=== PATIENT | female | born 1995 | race American Indian/Alaskan Native ===

== ENCOUNTER 2017-02-18 12:05 | Emergency (ER) | payer MEDICAID, OTHER ==
[2017-02-18 12:05] VITALS: BMI 30.1
[2017-02-18 12:22] VITALS: BP 129/73; PULSE 74; TEMP 97.8; O2SAT 100
--- NOTE | 2017-02-18 12:34 | ED PDOC ---
HPI: SOB/CHF/COPD Time Seen by Provider: 02/18/17 12:26 Chief Complaint (Nursing): Shortness Of Breath Chief Complaint (Provider): cough History Per: Patient History/Exam Limitations: no limitations Onset/Duration Of Symptoms: Days (3) Current Symptoms Are (Timing): Still Present Exacerbating Factor(s): Coughing Additional History Per: Patient Additional Complaint(s): 21 y/o female presents to ED for evaluation of cough and chest tightness present for the past 3 days. Patient reports she has a history of frequent bronchitis and states she has not taken any medications for her symptoms. She offers no other medical complaints. Denies any recent travel or known sick contacts. PCP: Dr. Maxwell Osborne Past Medical History Reviewed: Historical Data, Nursing Documentation, Vital Signs Vital Signs: Last Vital Signs Temp 97.8 F 02/18/17 12:19 Pulse 74 02/18/17 12:19 Resp 20 02/18/17 12:19 BP 129/73 02/18/17 12:19 Pulse Ox 100 02/18/17 12:37 - Medical History PMH: Bronchitis - Surgical History Surgical History: Hernia Repair (x2) - Family History Family History: States: No Known Family Hx - Living Arrangements Living Arrangements: With Family - Social History Current smoker - smoking cessation education provided: Yes Alcohol: Occasional Drugs: Denies - Home Medications Home Medications: Ambulatory Orders Medication Instructions Recorded Ibuprofen [Motrin] 600 mg PO Q6 PRN #20 tab 09/22/16 Nitrofurantoin Macrocrystals 100 mg PO BID #14 cap 09/22/16 [Macrobid] Acyclovir [Zovirax] 400 mg PO TID #21 tab 09/23/16 Albuterol HFA [Ventolin HFA 90 1 puff IH Q6 PRN #1 inhaler 02/18/17 mcg/actuation (8 g)] Azithromycin [Zithromax] 250 mg PO DAILY #6 tab 02/18/17 Benzonatate 200 mg PO TID PRN #20 capsule 02/18/17 - Allergies Allergies/Adverse Reactions: Allergies Allergy/AdvReac Type Severity Reaction Status Date / Time No Known Allergies Allergy Verified 02/18/17 12:19 Wells Criteria for PE - Wells Criteria for Pulmonary Embolism Clinical Signs and Symptoms of DVT: No P.E is #1 Diagnosis, or Equally Likely: No Heart Rate >100: No Immobilization at least 3 days;Surgery previous 4 weeks: No Previous, objectively diagnosed PE or DVT: No Hemoptysis: No Malignancy w/treatment within 6 months, or palliative: No Total Score: 0 Review of Systems ROS Statement: Except As Marked, All Systems Reviewed And Found Negative Cardiovascular: Positive for: Other (chest tightness from couging) Respiratory: Positive for: Cough, Shortness of Breath, Pleuritic Pain. Negative for: SOB with Exertion Gastrointestinal: Negative for: Nausea, Vomiting Neurological: Negative for: Headache, Dizziness Physical Exam - Reviewed Nursing Documentation Reviewed: Yes Vital Signs Reviewed: Yes - Physical Exam Appears: Positive for: Non-toxic, No Acute Distress Head Exam: Positive for: ATRAUMATIC, NORMAL INSPECTION, NORMOCEPHALIC Skin: Positive for: Warm, Dry ENT: Positive for: Normal ENT Inspection. Negative for: Pharyngeal Erythema, Tonsillar Exudate, Tonsillar Swelling Neck: Positive for: Normal, Supple Cardiovascular/Chest: Positive for: Regular Rate, Rhythm. Negative for: Murmur Respiratory: Positive for: Normal Breath Sounds. Negative for: Wheezing, Respiratory Distress Gastrointestinal/Abdominal: Positive for: Soft. Negative for: Tenderness Extremity: Positive for: Normal ROM. Negative for: Pedal Edema Neurologic/Psych: Positive for: Alert, Oriented. Negative for: Motor/Sensory Deficits - Laboratory Results Urine POC: Negative - ECG Interpretation Of ECG: NSR 81 bpm, no acute findings, reviewed by PA and ED attending O2 Sat by Pulse Oximetry: 100 (RA) Pulse Ox Interpretation: Normal - Other Rad CXR X-Ray: Interpreted by Me, Viewed By Me X-Ray Interpretation: no acute finding Nebulizer Treatments/Peak Flow - Duonebs Number of Bronchodilator Doses given?: 1 (duoneb) - Pre/Post Peak Flow Pre Treatment Peak Flow: 150 Post treatment Peak Flow: 300 - Steroid Treatment Steroid: Not Clinically Indicated - Clinical Response Clinical Response: Improved Medical Decision Making Medical Decision Making: Time: 1228 Impression: Cough, URI Plan: -- CXR -- Duoneb 3ml INH CXR negative Patient given rx zithromax, tessalon perles and ventolin inhaler. Advised PMD follow up in 1-2 days. Scribe Attestation: Documented by Capri Thompson acting as a scribe for AGNES Falk Provider Attestation: All medical record entries made by the Markoibe were at my direction and personally dictated by me. I have reviewed the chart and agree that the record accurately reflects my personal performance of the history, physical exam, medical decision making, and the department course for this patient. I have also personally directed, reviewed, and agree with the discharge instructions and disposition. Disposition - Clinical Impression Clinical Impression: Bronchitis - Patient ED Disposition Is Patient to be Admitted: No Counseled Patient/Family Regarding: Studies Performed, Diagnosis, Need For Followup, Rx Given - Disposition Referrals: Maxwell Osborne MD [IM] - Disposition: Routine/Home Disposition Time: 13:27 Condition: STABLE Additional Instructions: Take prescription medications as directed. Follow-up with primary doctor in 1-2 days. Prescriptions: Albuterol HFA [Ventolin HFA 90 mcg/actuation (8 g)] 1 puff IH Q6 PRN #1 inhaler PRN Reason: Cough Azithromycin [Zithromax] 250 mg PO DAILY #6 tab Benzonatate 200 mg PO TID PRN #20 capsule PRN Reason: Cough Instructions: Acute Bronchitis (ED) Forms: [facility] (Indonesian), [facility] ED School/Work Excuse
[2017-02-18] MEDS: Albuterol-Ipratrop 3 mg / 0.5 (3 ml) UD INH STA (12:41)
[2017-02-18 13:37] VITALS: RESP 16
--- NOTE | 2017-02-18 14:51 | RAD ---
HISTORY: cough COMPARISON: No prior. TECHNIQUE: Chest PA and lateral FINDINGS: LUNGS: No active pulmonary disease. PLEURA: No significant pleural effusion identified. No pneumothorax apparent. CARDIOVASCULAR: Normal. OSSEOUS STRUCTURES: No significant abnormalities. VISUALIZED UPPER ABDOMEN: Normal. OTHER FINDINGS: None. IMPRESSION: No active disease.
== END 2017-02-18 13:39 | disposition home or self-care (01) ==
LOC: H.ER 12:05
DX: J20.9 Acute bronchitis, unspecified (principal)

== ENCOUNTER 2017-04-20 09:12 | Emergency (ER) | payer MEDICAID ==
--- NOTE | 2017-04-20 09:32 | ED PDOC ---
HPI: Female Pain Time Seen by Provider: 04/20/17 09:20 History Per: Patient Current Symptoms Are (Timing): Still Present Severity: Moderate Quality Of Discomfort: Burning Additional Complaint(s): Swelling to vagina after using new body wash. No when urinating. No discharge Past Medical History - Medical History PMH: Bronchitis - Surgical History Surgical History: Hernia Repair (x2) - Family History Family History: States: Unknown Family Hx - Immunization History Hx Tetanus Toxoid Vaccination: No Hx Influenza Vaccination: No Hx Pneumococcal Vaccination: No - Home Medications Home Medications: Ambulatory Orders Medication Instructions Recorded Ibuprofen [Motrin] 600 mg PO Q6 PRN #20 tab 09/22/16 Nitrofurantoin Macrocrystals 100 mg PO BID #14 cap 09/22/16 [Macrobid] Acyclovir [Zovirax] 400 mg PO TID #21 tab 09/23/16 Albuterol HFA [Ventolin HFA 90 1 puff IH Q6 PRN #1 inhaler 02/18/17 mcg/actuation (8 g)] Azithromycin [Zithromax] 250 mg PO DAILY #6 tab 02/18/17 Benzonatate 200 mg PO TID PRN #20 capsule 02/18/17 Hydrocortisone 1% Cream [Cortizone 1 gm EXT BID #1 tube 04/20/17 1% Cream] Nitrofurantoin Macrocrystals 100 mg PO BID #14 cap 04/20/17 [Macrobid] - Allergies Allergies/Adverse Reactions: Allergies Allergy/AdvReac Type Severity Reaction Status Date / Time No Known Allergies Allergy Verified 04/20/17 09:33 Review of Systems Constitutional: Negative for: Fever Genitourinary Female: Positive for: Other (Vaginal swelling) Physical Exam - Physical Exam Appears: Positive for: Non-toxic, No Acute Distress Gastrointestinal/Abdominal: Positive for: Bowel Sounds, Soft. Negative for: Tenderness Pelvic Exam: Positive for: Other (Minimal swelling to ext labis. No lesions. No discharge) Disposition - Clinical Impression Clinical Impression: Contact dermatitis - Patient ED Disposition Is Patient to be Admitted: No Counseled Patient/Family Regarding: Diagnosis, Need For Followup, Rx Given - Disposition Referrals: [facility] [Outside] Disposition: Routine/Home Disposition Time: 09:47 Condition: FAIR Prescriptions: Hydrocortisone 1% Cream [Cortizone 1% Cream] 1 gm EXT BID #1 tube Nitrofurantoin Macrocrystals [Macrobid] 100 mg PO BID #14 cap Instructions: Contact Dermatitis (ED), Urinary Tract Infection in Women (ED)
[2017-04-20 09:33] VITALS: BP 125/84; PULSE 81; RESP 16; TEMP 97.9; O2SAT 100
== END 2017-04-20 10:19 | disposition home or self-care (01) ==
LOC: H.ER 09:12
DX: L23.9 Allergic contact dermatitis, unspecified cause (principal); N39.0 Urinary tract infection, site not specified

== ENCOUNTER 2017-08-05 13:07 | Emergency (ER) | payer MEDICAID, OTHER ==
[2017-08-05 13:15] VITALS: BP 122/82; PULSE 103; RESP 16; TEMP 99.1; O2SAT 99
--- NOTE | 2017-08-05 14:05 | ED PDOC ---
HPI: CCC, URI, Sore Throat Time Seen by Provider: 08/05/17 13:49 Chief Complaint (Nursing): ENT Problem Chief Complaint (Provider): b/l ear pain History Per: Patient History/Exam Limitations: no limitations Onset/Duration Of Symptoms: Days (x1) Current Symptoms Are (Timing): Still Present Location Of Pain: Ear(s), Throat Associated Symptoms: Sore Throat Ear Symptoms: Bilateral: Ear Pain Additional Complaint(s): Norma Holbrook is a 22 year old female, with no significant past medical history, who presents to the emergency department complaining of sore throat, and bilateral ear pain onset since this morning. Patient denies any recent swimming. She denies any fever, chills or other medical complaints. PMD: Bola Osborne Past Medical History Reviewed: Historical Data, Nursing Documentation, Vital Signs Vital Signs: Last Vital Signs Temp 99.1 F 08/05/17 13:13 Pulse 103 H 08/05/17 13:13 Resp 16 08/05/17 13:13 BP 122/82 08/05/17 13:13 Pulse Ox 99 08/05/17 14:10 - Medical History PMH: Bronchitis Denies: Chronic Kidney Disease - Surgical History Surgical History: Hernia Repair (x2) - Family History Family History: States: Unknown Family Hx - Immunization History Hx Tetanus Toxoid Vaccination: No Hx Influenza Vaccination: No Hx Pneumococcal Vaccination: No - Home Medications Home Medications: Ambulatory Orders Medication Instructions Recorded Ibuprofen [Motrin] 600 mg PO Q6 PRN #20 tab 09/22/16 Nitrofurantoin Macrocrystals 100 mg PO BID #14 cap 09/22/16 [Macrobid] Acyclovir [Zovirax] 400 mg PO TID #21 tab 09/23/16 Albuterol HFA [Ventolin HFA 90 1 puff IH Q6 PRN #1 inhaler 02/18/17 mcg/actuation (8 g)] Azithromycin [Zithromax] 250 mg PO DAILY #6 tab 02/18/17 Benzonatate 200 mg PO TID PRN #20 capsule 02/18/17 Hydrocortisone 1% Cream [Cortizone 1 gm EXT BID #1 tube 04/20/17 1% Cream] Nitrofurantoin Macrocrystals 100 mg PO BID #14 cap 04/20/17 [Macrobid] Ciprofloxacin/Dexamethasone 4 drop AD QID #1 bottle 08/05/17 [Ciprodex Otic] - Allergies Allergies/Adverse Reactions: Allergies Allergy/AdvReac Type Severity Reaction Status Date / Time No Known Allergies Allergy Verified 04/20/17 09:33 Review of Systems ROS Statement: Except As Marked, All Systems Reviewed And Found Negative ENT: Positive for: Ear Pain (b/l), Throat Pain Physical Exam - Reviewed Nursing Documentation Reviewed: Yes Vital Signs Reviewed: Yes - Physical Exam Appears: Positive for: Well, Non-toxic, No Acute Distress Head Exam: Positive for: ATRAUMATIC, NORMAL INSPECTION, NORMOCEPHALIC Skin: Positive for: Normal Color, Warm, Dry Eye Exam: Positive for: Normal appearance, EOMI, PERRL ENT: Positive for: TM Is/Are (left TM intact, landmarks clear. Right TM intact, landmarks clear with some effusion.), Pharyngeal Erythema (left side more so than right. Uvula moderately edemic and centerline.) Neck: Positive for: Painless ROM Lymphatic: Positive for: Other (cervical nodes mildly inflamed.) Neurologic/Psych: Positive for: Alert, Oriented - ECG O2 Sat by Pulse Oximetry: 99 (RA) Pulse Ox Interpretation: Normal Medical Decision Making Medical Decision Making: Initial Impression: External otitis Initial Plan: --Reevaluation ~ Scribe Attestation: Documented by Ralph Galvan, acting as a scribe for Jarrod Smith PA-C. Provider Scribe Attestation: All medical record entries made by the Scribe were at my direction and personally dictated by me. I have reviewed the chart and agree that the record accurately reflects my personal performance of the history, physical exam, medical decision making, and the department course for this patient. I have also personally directed, reviewed, and agree with the discharge instructions and disposition. Disposition - Clinical Impression Clinical Impression: External otitis of left ear, Left ear pain - Disposition Disposition: Routine/Home Disposition Time: 14:56 Condition: GOOD Additional Instructions: keep ear dry take medication provided as directed Prescriptions: Ciprofloxacin/Dexamethasone [Ciprodex Otic] 4 drop AD QID #1 bottle Instructions: Outer Ear Infection (DC) Forms: [facility] (Maltese), [facility] ED School/Work Excuse
== END 2017-08-05 14:35 | disposition home or self-care (01) ==
LOC: H.ER 13:07
DX: H60.92 Unspecified otitis externa, left ear (principal)

== ENCOUNTER 2017-08-12 09:23 | Emergency (ER) | payer OTHER ==
[2017-08-12 10:01] VITALS: BP 136/89; PULSE 90; RESP 18; TEMP 98; O2SAT 98
--- NOTE | 2017-08-12 11:13 | ED PDOC ---
HPI: General Adult Time Seen by Provider: 08/12/17 10:32 Chief Complaint (Nursing): ENT Problem History Per: Patient Additional Complaint(s): Pt. states last week she was seen in this ED for a L earache. She was prescribed Ciprodex but was substituded cortisporin solution. Reports 2 days after ED visit she developed R earache for which she used the ear drops. Ear pain has been improving but on Friday she developed a sore throat. Sore throat has been radiating up to both ears. Denies fever, cough, SOB, rash, abdominal pain, sick contacts, recent travel. Of note, pt. has not used any meds other than ear drops to help relieve pain. Past Medical History Reviewed: Historical Data, Nursing Documentation, Vital Signs Vital Signs: Last Vital Signs Temp 98.0 F 08/12/17 09:57 Pulse 90 08/12/17 09:57 Resp 18 08/12/17 09:57 BP 136/89 08/12/17 09:57 Pulse Ox 98 08/12/17 11:18 - Medical History PMH: Bronchitis Denies: Chronic Kidney Disease - Surgical History Surgical History: No Surg Hx, Hernia Repair (x2) - Family History Family History: States: No Known Family Hx - Immunization History Hx Tetanus Toxoid Vaccination: No Hx Influenza Vaccination: No Hx Pneumococcal Vaccination: No - Home Medications Home Medications: Ambulatory Orders Medication Instructions Recorded Ibuprofen [Motrin] 600 mg PO Q6 PRN #20 tab 09/22/16 Nitrofurantoin Macrocrystals 100 mg PO BID #14 cap 09/22/16 [Macrobid] Acyclovir [Zovirax] 400 mg PO TID #21 tab 09/23/16 Albuterol HFA [Ventolin HFA 90 1 puff IH Q6 PRN #1 inhaler 02/18/17 mcg/actuation (8 g)] Azithromycin [Zithromax] 250 mg PO DAILY #6 tab 02/18/17 Benzonatate 200 mg PO TID PRN #20 capsule 02/18/17 Hydrocortisone 1% Cream [Cortizone 1 gm EXT BID #1 tube 04/20/17 1% Cream] Nitrofurantoin Macrocrystals 100 mg PO BID #14 cap 04/20/17 [Macrobid] Ciprofloxacin/Dexamethasone 4 drop AD QID #1 bottle 08/05/17 [Ciprodex Otic] Amoxicillin [Amoxil 500 mg Cap] 500 mg PO TID #30 cap 08/12/17 Ibuprofen [Motrin] 600 mg PO Q6 PRN #30 tab 08/12/17 - Allergies Allergies/Adverse Reactions: Allergies Allergy/AdvReac Type Severity Reaction Status Date / Time No Known Allergies Allergy Verified 04/20/17 09:33 Review of Systems ROS Statement: Except As Marked, All Systems Reviewed And Found Negative ENT: Positive for: Ear Pain, Throat Pain Physical Exam - Physical Exam Appears: Positive for: Well Skin: Positive for: Normal Color, Warm. Negative for: Rash Eye Exam: Positive for: Normal appearance. Negative for: Conjunctival injection ENT: Positive for: TM Is/Are (non-erythematous, non-bulging b/l), Hearing Is ( grossly intact), Pharyngeal Erythema (b/l), Tonsillar Swelling (b/l), Other ( Both ear canals clear without edema, exudates or erythema; no mastoid tenderness b/l; mastoid tenderness or swelling b/l). Negative for: Tonsillar Exudate Neck: Positive for: Normal, Painless ROM Respiratory: Positive for: Normal Breath Sounds Gastrointestinal/Abdominal: Positive for: Normal Exam, Soft. Negative for: Tenderness, Organomegaly Neurologic/Psych: Positive for: Alert, Oriented. Negative for: Aphasia, Facial Droop - ECG O2 Sat by Pulse Oximetry: 98 - Progress ED Course And Treament: Decadron 10mg IM, motrin 600mg PO, throat culture ordered. On re-evaluation, pt. states pain has improved. Able to swallow saliva. Disposition - Clinical Impression Clinical Impression: Strep pharyngitis - Patient ED Disposition Is Patient to be Admitted: No - Disposition Disposition: Routine/Home Disposition Time: 11:16 Condition: STABLE Prescriptions: Amoxicillin [Amoxil 500 mg Cap] 500 mg PO TID #30 cap Ibuprofen [Motrin] 600 mg PO Q6 PRN #30 tab PRN Reason: pain or fever Instructions: Strep Throat (DC) Forms: [facility] (Bangladeshi), [facility] ED School/Work Excuse Print Language: TRISTANIAN
== END 2017-08-12 13:00 | disposition home or self-care (01) ==
LOC: H.ER 09:23
DX: J02.0 Streptococcal pharyngitis (principal); H92.03 Otalgia, bilateral
CPT/HCPCS: 81025; 87070; 96372; 99282; J1100

== ENCOUNTER 2017-08-31 16:45 | Emergency (ER) | payer OTHER ==
[2017-08-31 16:49] VITALS: BP 138/86; PULSE 101; RESP 16; TEMP 98.8; O2SAT 100
--- NOTE | 2017-08-31 17:04 | ED PDOC ---
HPI: General Adult Time Seen by Provider: 08/31/17 16:56 Chief Complaint (Nursing): Abdominal Pain Additional Complaint(s): 22 y/o F c no PMHx p/w abdominal pain x 1 day. Describes pain as epigastric, nonradiating, constant, sharp, associated with NBNB vomiting and NB diarrhea x 3. States ate hotdog off grill last night. Denies fever, vaginal bleeding, dyspnea. Past Medical History Vital Signs: Last Vital Signs Temp 98.8 F 08/31/17 16:47 Pulse 101 H 08/31/17 16:47 Resp 16 08/31/17 16:47 BP 138/86 08/31/17 16:47 Pulse Ox 100 08/31/17 17:04 - Medical History PMH: Bronchitis Denies: Chronic Kidney Disease - Surgical History Surgical History: Hernia Repair (x2) - Family History Family History: States: Unknown Family Hx - Immunization History Hx Tetanus Toxoid Vaccination: No Hx Influenza Vaccination: No Hx Pneumococcal Vaccination: No - Home Medications Home Medications: Ambulatory Orders Medication Instructions Recorded Ibuprofen [Motrin] 600 mg PO Q6 PRN #20 tab 09/22/16 Nitrofurantoin Macrocrystals 100 mg PO BID #14 cap 09/22/16 [Macrobid] Acyclovir [Zovirax] 400 mg PO TID #21 tab 09/23/16 Albuterol HFA [Ventolin HFA 90 1 puff IH Q6 PRN #1 inhaler 02/18/17 mcg/actuation (8 g)] Azithromycin [Zithromax] 250 mg PO DAILY #6 tab 02/18/17 Benzonatate 200 mg PO TID PRN #20 capsule 02/18/17 Hydrocortisone 1% Cream [Cortizone 1 gm EXT BID #1 tube 04/20/17 1% Cream] Nitrofurantoin Macrocrystals 100 mg PO BID #14 cap 04/20/17 [Macrobid] Ciprofloxacin/Dexamethasone 4 drop AD QID #1 bottle 08/05/17 [Ciprodex Otic] Amoxicillin [Amoxil 500 mg Cap] 500 mg PO TID #30 cap 08/12/17 Ibuprofen [Motrin] 600 mg PO Q6 PRN #30 tab 08/12/17 Famotidine/Ca Carb/Mag Hydrox 1 each PO BID #28 tab.chew 08/31/17 [Pepcid Complete Tablet Chew] Ondansetron ODT [Zofran ODT] 4 mg PO Q8 #12 odt 08/31/17 - Allergies Allergies/Adverse Reactions: Allergies Allergy/AdvReac Type Severity Reaction Status Date / Time No Known Allergies Allergy Verified 04/20/17 09:33 Review of Systems ROS Statement: Except As Marked, All Systems Reviewed And Found Negative Constitutional: Negative for: Fever Genitourinary Female: Negative for: Dysuria Physical Exam - Physical Exam Comments: Gen: NAD, appears generally weak Head: NC Eyes: No scleral icterus ENT: MMM Neck: Supple Chest: No tenderness CV: Borderline tachycardia Lungs: CTA b/l Abd: Soft, epigastric tenderness without guarding Back: No CVA tenderness Skin: No rash Neuro: Alert, no focal deficit Extremities: No edema - Laboratory Results Result Diagrams: 08/31/17 17:30 08/31/17 17:30 - ECG O2 Sat by Pulse Oximetry: 100 Medical Decision Making Medical Decision Making: Patient feels better. PO challenged. Abdominal exam soft, epigastric tenderness without guarding, no RUQ tenderness. Will discharge, continue PO fluids, Zofran , instructed to return to ED for worsening pain, fever, yellowing of eyes, intractible vomiting, or any other problem. Disposition - Clinical Impression Clinical Impression: Vomiting and diarrhea - Patient ED Disposition Is Patient to be Admitted: No - Disposition Disposition: Routine/Home Disposition Time: 18:34 Condition: STABLE Prescriptions: Famotidine/Ca Carb/Mag Hydrox [Pepcid Complete Tablet Chew] 1 each PO BID #28 tab.chew Ondansetron ODT [Zofran ODT] 4 mg PO Q8 #12 odt Instructions: Viral Gastroenteritis Forms: [facility] (Northern Irish)
[2017-08-31] MEDS ORDERED: Sodium Chloride 0.9% 1,000 ML IV SCH (17:15)
[2017-08-31 17:48] LABS: SQUAMOUS EPITHIAL 4 /hpf (0-5); URINE BILIRUBIN NEGATIVE (NEGATIVE); URINE BLOOD NEGATIVE (NEGATIVE); URINE CLARITY SLIGHTY-CLOUDY (Clear); URINE COLOR YELLOW (YELLOW); URINE GLUCOSE (UA) NEG (Normal); URINE LEUKOCYTE ESTERASE NEG Leu/uL (Negative); URINE PROTEIN NEGATIVE (NEGATIVE); URINE UROBILINOGEN 0.2-1.0 mg/dL (0.2-1.0)
[2017-08-31 17:56] LABS: ALB/GLOB RATIO 1.1 (1.0-2.1); ALBUMIN 4.2 g/dL (3.5-5.0); ALT/SGPT 35 U/L (9-52); AST/SGOT 26 U/L (14-36); BLOOD UREA NITROGEN 16 mg/dl (7-17); CALCIUM 9.3 mg/dL (8.4-10.2); GFR AFRICAN-AMERICAN > 60; GFR NON-AFRICAN AMERICAN > 60; LIPASE 23 U/L (23-300)
[2017-08-31 17:57] LABS: HCG,QUALITATIVE URINE NEGATIVE (NEGATIVE)
[2017-08-31 18:00] LABS: BASO % 0.5 % (0.0-2.0); EOS # 0.2 K/uL (0.0-0.7); EOS % 3.1 % (0.0-4.0); HEMOGLOBIN 13.6 g/dL (12.0-16.0); LYMPH # 0.6 K/uL (1.0-4.3); MEAN CELL VOLUME 78.1 fl (81.0-99.0); MEAN CORPUSCULAR HEMOGLOBIN 25.8 pg (27.0-31.0); MEAN CORPUSCULAR HGB CONC 33.1 g/dL (33.0-37.0); MEAN PLATELET VOLUME 8.2 fl (7.2-11.7); MONO # 0.3 K/uL (0.0-0.8); MONO % 4.7 % (0.0-10.0); NEUT # 4.5 K/uL (1.8-7.0); NEUT % 80.7 % (50.0-75.0); NRBC % 0.1 % (0.0-0.0); RBC 5.27 Mil/uL (3.80-5.20); RED CELL DISTRIBUTION WIDTH 14.7 % (11.5-14.5); WHITE BLOOD COUNT 5.6 K/uL (4.8-10.8)
== END 2017-08-31 18:48 | disposition home or self-care (01) ==
LOC: H.ER 16:45
DX: R11.10 Vomiting, unspecified (principal); R19.7 Diarrhea, unspecified
CPT/HCPCS: 80053; 81003; 83690; 84703; 85025; 87086; 96374; 96375; 99283; J2405; J7040

== ENCOUNTER 2017-09-16 08:09 | Emergency (ER) | payer OTHER ==
[2017-09-16 08:29] VITALS: TEMP 97; O2SAT 99
--- NOTE | 2017-09-16 09:09 | ED PDOC ---
HPI: CCC, URI, Sore Throat Time Seen by Provider: 09/16/17 08:49 Chief Complaint (Nursing): Cough, Cold, Congestion Chief Complaint (Provider): right ear pain, cough, congestion History Per: Patient History/Exam Limitations: no limitations Onset/Duration Of Symptoms: Days (late last week) Current Symptoms Are (Timing): Still Present Location Of Pain: Ear(s) (right) Associated Symptoms: Cough, Nasal Congestion, Other (wheeze). denies: Fever, Chills Ear Symptoms: Right: Ear Pain Additional Complaint(s): Norma Holbrook is a 22 year old female, with a past medical history of bronchitis , who presents to the emergency department complaining of right ear pain associated with cough, congestion and wheeze onset since late last week. Patient has a history of bronchitis and states this feels similar. She has been using Mucinex without relief. She denies any orthopnea, edema, fever, chills or syncope. No further medical complaints. PMD: None provided. Past Medical History Reviewed: Historical Data, Nursing Documentation, Vital Signs Vital Signs: Last Vital Signs Temp 97.0 F L 09/16/17 08:26 Pulse 84 09/16/17 12:02 Resp 15 09/16/17 12:02 BP 126/80 09/16/17 12:02 Pulse Ox 99 09/16/17 12:02 - Medical History PMH: Bronchitis Denies: Chronic Kidney Disease - Surgical History Surgical History: Hernia Repair (x2) - Family History Family History: States: Unknown Family Hx - Social History Current smoker - smoking cessation education provided: No Alcohol: Social Drugs: Cannabis - Immunization History Hx Tetanus Toxoid Vaccination: No Hx Influenza Vaccination: No Hx Pneumococcal Vaccination: No - Home Medications Home Medications: Ambulatory Orders Medication Instructions Recorded Ibuprofen [Motrin] 600 mg PO Q6 PRN #20 tab 09/22/16 Nitrofurantoin Macrocrystals 100 mg PO BID #14 cap 09/22/16 [Macrobid] Acyclovir [Zovirax] 400 mg PO TID #21 tab 09/23/16 Albuterol HFA [Ventolin HFA 90 1 puff IH Q6 PRN #1 inhaler 02/18/17 mcg/actuation (8 g)] Azithromycin [Zithromax] 250 mg PO DAILY #6 tab 02/18/17 Benzonatate 200 mg PO TID PRN #20 capsule 02/18/17 Hydrocortisone 1% Cream [Cortizone 1 gm EXT BID #1 tube 04/20/17 1% Cream] Nitrofurantoin Macrocrystals 100 mg PO BID #14 cap 04/20/17 [Macrobid] Ciprofloxacin/Dexamethasone 4 drop AD QID #1 bottle 08/05/17 [Ciprodex Otic] Amoxicillin [Amoxil 500 mg Cap] 500 mg PO TID #30 cap 08/12/17 Ibuprofen [Motrin] 600 mg PO Q6 PRN #30 tab 08/12/17 Famotidine/Ca Carb/Mag Hydrox 1 each PO BID #28 tab.chew 08/31/17 [Pepcid Complete Tablet Chew] Ondansetron ODT [Zofran ODT] 4 mg PO Q8 #12 odt 08/31/17 Albuterol Sulfate [Ventolin Hfa] 2 puff IH Q4 PRN #1 unit 09/16/17 Azithromycin [Zithromax] 250 mg PO DAILY #6 tab 09/16/17 Ibuprofen [Motrin Tab] 600 mg PO Q6 PRN #15 tab 09/16/17 Prednisone 50 mg PO DAILY #4 tab 09/16/17 - Allergies Allergies/Adverse Reactions: Allergies Allergy/AdvReac Type Severity Reaction Status Date / Time No Known Allergies Allergy Verified 09/16/17 08:25 Review of Systems ROS Statement: Except As Marked, All Systems Reviewed And Found Negative Constitutional: Negative for: Fever, Chills ENT: Positive for: Ear Pain (right), Throat Pain Cardiovascular: Negative for: Orthopnea, Edema Respiratory: Positive for: Cough, Shortness of Breath Physical Exam - Reviewed Nursing Documentation Reviewed: Yes Vital Signs Reviewed: Yes - Physical Exam Appears: Positive for: Non-toxic, No Acute Distress Head Exam: Positive for: ATRAUMATIC, NORMOCEPHALIC Skin: Positive for: Normal Color, Warm, Dry Eye Exam: Positive for: Normal appearance, EOMI, PERRL ENT: Positive for: TM Is/Are (Right TM erythema and bulge), Pharyngeal Erythema (mild). Negative for: Tonsillar Exudate Neck: Positive for: Painless ROM Cardiovascular/Chest: Positive for: Regular Rate, Rhythm. Negative for: Murmur Respiratory: Positive for: Wheezing (bilaterally). Negative for: Respiratory Distress (speaking full sentences) Gastrointestinal/Abdominal: Positive for: Normal Exam, Soft. Negative for: Tenderness Back: Positive for: Normal Inspection, Vertebral Tenderness. Negative for: L CVA Tenderness, R CVA Tenderness Extremity: Positive for: Normal ROM (all extremities). Negative for: Tenderness , Deformity, Swelling Neurologic/Psych: Positive for: Alert, Oriented. Negative for: Motor/Sensory Deficits - ECG O2 Sat by Pulse Oximetry: 99 (RA) Pulse Ox Interpretation: Normal Medical Decision Making Medical Decision Making: Initial Impression: Otitis media, bronchitis Initial Plan: --Urine --Duoneb 3 ml INH --prednisone 50 mg PO --Peak flow pre/post Tx --reevaluation -Plan will be for Duoneb, prednisone, and check. Early diagnosis: otitis media, bronchitis, and bronchial constriction. Scribe Attestation: Documented by Ralph Galvan, acting as a scribe for Pavan Barnett MD Provider Scribe Attestation: All medical record entries made by the Scribe were at my direction and personally dictated by me. I have reviewed the chart and agree that the record accurately reflects my personal performance of the history, physical exam, medical decision making, and the department course for this patient. I have also personally directed, reviewed, and agree with the discharge instructions and disposition. Disposition - Clinical Impression Clinical Impression: Bronchitis, Otitis media - Patient ED Disposition Is Patient to be Admitted: No Counseled Patient/Family Regarding: Studies Performed, Diagnosis, Need For Followup, Rx Given - Disposition Disposition: Routine/Home Disposition Time: 11:30 Condition: STABLE Prescriptions: Albuterol Sulfate [Ventolin Hfa] 2 puff IH Q4 PRN #1 unit PRN Reason: Shortness Of Breath Azithromycin [Zithromax] 250 mg PO DAILY #6 tab Ibuprofen [Motrin Tab] 600 mg PO Q6 PRN #15 tab PRN Reason: Pain, Moderate (4-7) Prednisone 50 mg PO DAILY #4 tab Instructions: Ear Infections (Otitis Media), Acute Bronchitis Forms: [facility] ([place]), [facility] ED School/Work Excuse
[2017-09-16] MEDS ORDERED: Albuterol-Ipratrop 3 mg / 0.5 (3 ml) UD ONE (09:36)
[2017-09-16] MEDS: Albuterol-Ipratrop 3 mg / 0.5 (3 ml) UD INH STA (09:37)
[2017-09-16 12:03] VITALS: BP 126/80; PULSE 84; RESP 15
== END 2017-09-16 12:03 | disposition home or self-care (01) ==
LOC: H.ER 08:09
DX: J40 Bronchitis, not specified as acute or chronic (principal); H66.91 Otitis media, unspecified, right ear

== ENCOUNTER 2017-12-22 16:03 | Emergency (ER) | payer SELFPAY ==
[2017-12-22 16:11] VITALS: BP 146/90; PULSE 85; RESP 18; TEMP 98.5; O2SAT 99
[2017-12-22] MEDS ORDERED: Tdap Vaccine 0.5 ml Vial (10-64 yrs) IM ONE ×2 (16:36→17:37)
[2017-12-22] MEDS ORDERED: Lidocaine 1% (10 ml) Inj INFIL ONE (16:36)
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
== END 2017-12-22 18:00 | disposition home or self-care (01) ==
LOC: H.ER 16:03
DX: S61.305A Unspecified open wound of left ring finger with damage to nail, initial encounter (principal); S80.812A Abrasion, left lower leg, initial encounter; S40.812A Abrasion of left upper arm, initial encounter; Y04.0XXA Assault by unarmed brawl or fight, initial encounter; Y92.89 Other specified places as the place of occurrence of the external cause

== ENCOUNTER 2017-12-25 21:14 | Emergency (ER) | payer SELFPAY ==
[2017-12-25 21:22] VITALS: BP 120/81; PULSE 68; RESP 18; TEMP 98.3; O2SAT 100
--- NOTE | 2017-12-25 21:38 | ED PDOC ---
HPI: Wound Care - HPI Time Seen by Provider: 12/25/17 21:27 Chief Complaint (Nursing): Wound Check Chief Complaint (Provider): wound check History Per: Patient Additional Complaint(s): 22-year-old female presents for wound check of fingernail injury to right fourth digit. Patient was seen 3 days ago at which time fingernail was removed secondary to partial nail avulsion. Patient presents today for wound check and bandage removal. Patient states that bandage is stuck to her finger. PMD: none Past Medical History Reviewed: Historical Data, Nursing Documentation, Vital Signs Vital Signs: Last Vital Signs Temp 98.3 F 12/25/17 21:21 Pulse 68 12/25/17 21:21 Resp 18 12/25/17 21:21 BP 120/81 12/25/17 21:21 Pulse Ox 100 12/25/17 21:21 - Medical History PMH: No Chronic Diseases - Surgical History Surgical History: Hernia Repair (x2) - Family History Family History: States: No Known Family Hx - Living Arrangements Living Arrangements: With Family - Social History Current smoker - smoking cessation education provided: No Alcohol: None Drugs: Denies - Immunization History Hx Tetanus Toxoid Vaccination: Yes - Home Medications Home Medications: Ambulatory Orders Medication Instructions Recorded Ibuprofen [Motrin] 600 mg PO Q6 PRN #20 tab 09/22/16 Nitrofurantoin Macrocrystals 100 mg PO BID #14 cap 09/22/16 [Macrobid] Acyclovir [Zovirax] 400 mg PO TID #21 tab 09/23/16 Albuterol HFA [Ventolin HFA 90 1 puff IH Q6 PRN #1 inhaler 02/18/17 mcg/actuation (8 g)] Azithromycin [Zithromax] 250 mg PO DAILY #6 tab 02/18/17 Benzonatate 200 mg PO TID PRN #20 capsule 02/18/17 Hydrocortisone 1% Cream [Cortizone 1 gm EXT BID #1 tube 04/20/17 1% Cream] Nitrofurantoin Macrocrystals 100 mg PO BID #14 cap 04/20/17 [Macrobid] Ciprofloxacin/Dexamethasone 4 drop AD QID #1 bottle 08/05/17 [Ciprodex Otic] Amoxicillin [Amoxil 500 mg Cap] 500 mg PO TID #30 cap 08/12/17 Ibuprofen [Motrin] 600 mg PO Q6 PRN #30 tab 08/12/17 Famotidine/Ca Carb/Mag Hydrox 1 each PO BID #28 tab.chew 08/31/17 [Pepcid Complete Tablet Chew] Ondansetron ODT [Zofran ODT] 4 mg PO Q8 #12 odt 08/31/17 Albuterol Sulfate [Ventolin Hfa] 2 puff IH Q4 PRN #1 unit 09/16/17 Azithromycin [Zithromax] 250 mg PO DAILY #6 tab 09/16/17 Ibuprofen [Motrin Tab] 600 mg PO Q6 PRN #15 tab 09/16/17 Prednisone 50 mg PO DAILY #4 tab 09/16/17 Cephalexin [cephalexin] 500 mg PO Q6 #12 cap 12/22/17 - Allergies Allergies/Adverse Reactions: Allergies Allergy/AdvReac Type Severity Reaction Status Date / Time No Known Allergies Allergy Verified 12/25/17 21:22 Review of Systems ROS Statement: Except As Marked, All Systems Reviewed And Found Negative Constitutional: Negative for: Fever Skin: Positive for: Other (wound check, right 4th digit) Physical Exam - Reviewed Nursing Documentation Reviewed: Yes Vital Signs Reviewed: Yes - Physical Exam Appears: Positive for: Well, Non-toxic, No Acute Distress Skin: Positive for: Normal Color. Negative for: Rash Eye Exam: Positive for: Normal appearance Extremity: Positive for: Other (Right fourth digit nail bed is exposed with fingernail removed, no acute infection noted, neurovascular intact) Neurologic/Psych: Positive for: Alert, Oriented - ECG O2 Sat by Pulse Oximetry: 100 Pulse Ox Interpretation: Normal Medical Decision Making Medical Decision Makin22 year old here for wound check Bandage from affected area was removed, wound is well-healed. Patient advised to take Tylenol or Motrin for pain. She was referred to hand specialist television reporter for follow up. Disposition - Clinical Impression Clinical Impression: Encounter for wound re-check - Patient ED Disposition Is Patient to be Admitted: No Counseled Patient/Family Regarding: Need For Followup - Disposition Referrals: Alex Huang MD [Medical Doctor] - Disposition: Routine/Home Disposition Time: 22:18 Condition: STABLE Additional Instructions: Keep area clean and dry. Do not cover wound at all times. Tylenol or Advil for pain as needed. Follow-up with hand specialist for any persistent symptoms. Instructions: Wound Care Forms: [facility] ([place])
== END 2017-12-25 22:58 | disposition home or self-care (01) ==
LOC: H.ER 21:14
DX: Z48.00 Encounter for change or removal of nonsurgical wound dressing (principal)

== ENCOUNTER 2018-07-06 17:15 | Emergency (ER) | payer MEDICAID ==
--- NOTE | 2018-07-06 17:46 | ED PDOC ---
Lower Extremity Pain/Injury Time Seen by Provider: 07/06/18 17:23 Chief Complaint (Nursing): Lower Extremity Problem/Injury Chief Complaint (Provider): Lower Extremity Problem History Per: Patient History/Exam Limitations: no limitations Onset/Duration Of Symptoms: Days (3x months) Current Symptoms Are (Timing): Still Present Pain Scale Rating Of: 4 Additional Complaint(s): 23 year old female with no past medical history presents to the ED for evaluation of right knee pain and swelling intermittent for the past 3x months. Patient denies having falls/trauma or prior knee injury/surgery. Patient states that the pain is mild (level 3-4/10), but worsens with associated swelling. 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 Otherwise: (-) taking medications prior to arrival, (-) other complaints, (-) fevers, (-) shortness of breath, (-) cough, (-) calf tenderness, (-) swelling of feet, (-) chest pain, (-) nausea, (- ) vomiting, (-) headaches, (-) dizziness. Last menstrual period: unsure, thinks it was before (03/2018). No home tests taken. PMD: Clint Osborne MD Past Medical History Reviewed: Historical Data, Nursing Documentation, Vital Signs Vital Signs: Last Vital Signs Temp 98.5 F 07/06/18 17:18 Pulse 102 H 07/06/18 17:18 Resp 16 07/06/18 17:18 BP 139/83 07/06/18 17:18 Pulse Ox 99 07/06/18 17:18 - Medical History PMH: Bronchitis - Surgical History Surgical History: Hernia Repair (x2) - Family History Family History: States: No Known Family Hx - Home Medications Home Medications: Ambulatory Orders Medication Instructions Recorded Ibuprofen [Motrin] 600 mg PO Q6 PRN #20 tab 09/22/16 Nitrofurantoin Macrocrystals 100 mg PO BID #14 cap 09/22/16 [Macrobid] RX: Acyclovir [Zovirax] 400 mg PO TID #21 tab 09/23/16 Azithromycin [Zithromax] 250 mg PO DAILY #6 tab 02/18/17 RX: Albuterol HFA [Ventolin HFA 90 1 puff IH Q6 PRN #1 inhaler 02/18/17 mcg/actuation (8 g)] RX: Benzonatate 200 mg PO TID PRN #20 capsule 02/18/17 Nitrofurantoin Macrocrystals 100 mg PO BID #14 cap 04/20/17 [Macrobid] RX: Hydrocortisone 1% Cream 1 gm EXT BID #1 tube 04/20/17 [Cortizone 1% Cream] Ciprofloxacin/Dexamethasone 4 drop AD QID #1 bottle 08/05/17 [Ciprodex Otic] Ibuprofen [Motrin] 600 mg PO Q6 PRN #30 tab 08/12/17 RX: Amoxicillin [Amoxil 500 mg Cap] 500 mg PO TID #30 cap 08/12/17 Famotidine/Ca Carb/Mag Hydrox 1 each PO BID #28 tab.chew 08/31/17 [Pepcid Complete Tablet Chew] Ondansetron ODT [Zofran ODT] 4 mg PO Q8 #12 odt 08/31/17 RX: Albuterol Sulfate [Ventolin 2 puff IH Q4 PRN #1 unit 09/16/17 Hfa] RX: Azithromycin [Zithromax] 250 mg PO DAILY #6 tab 09/16/17 RX: Ibuprofen [Motrin Tab] 600 mg PO Q6 PRN #15 tab 09/16/17 RX: Prednisone 50 mg PO DAILY #4 tab 09/16/17 Cephalexin [cephalexin] 500 mg PO Q6 #12 cap 12/22/17 Acetaminophen [Acetaminophen 8 650 mg PO Q8 PRN #21 tablet.er 07/06/18 Hour] 21/Iron Fu/Folic Acid 1 each PO DAILY #60 tablet 07/06/18 [ Complete Caplet] - Allergies Allergies/Adverse Reactions: Allergies Allergy/AdvReac Type Severity Reaction Status Date / Time No Known Allergies Allergy Verified 12/25/17 21:22 Review of Systems ROS Statement: Except As Marked, All Systems Reviewed And Found Negative Constitutional: Negative for: Fever Cardiovascular: Negative for: Chest Pain Respiratory: Negative for: Cough, Shortness of Breath Gastrointestinal: Negative for: Nausea, Vomiting Musculoskeletal: Positive for: Other (right knee pain and swelling). Negative for: Foot Pain ((-) sweling) Neurological: Negative for: Headache, Dizziness Physical Exam - Reviewed Nursing Documentation Reviewed: Yes Vital Signs Reviewed: Yes - Physical Exam Comments: GENERAL APPEARANCE: Patient is awake, alert, oriented x 3, in no acute distress. Resting comfortably, on cell phone. SKIN: Warm, dry; (-) cyanosis. NECK: Supple, FROM ENT: Mucus membranes moist. Airway patent, (-) stridor. CHEST AND RESPIRATORY: (-) rales, (-) rhonchi, (-) wheezes; breath sounds equal bilaterally. Respirations even and nonlabored. HEART AND CARDIOVASCULAR: (-) irregularity RIGHT LOWER EXTREMITY: Patient ambulating in ED with a steady gait. (+)patellar tenderness to right knee (-) effusion, (-) crepitus, (-) erythema (-) warmth. Full ROM with pain on flexion. (-) anterior or posterior draw sign. (-) instability with valgus or varus stress. (-) calf tenderness, erythema, or edema (-) palpable cord. Achilles tendon intact and nontender. Remainder or lower extremity nontender with full ROM. (+) distal pulse NEUROLOGIC: (+) distal sensation. - Laboratory Results Urine POC: Positive - ECG O2 Sat by Pulse Oximetry: 99 (RA) Pulse Ox Interpretation: Normal Medical Decision Making Medical Decision Makin:25 Clinical impression: 23 year old female with acute knee pain, likely patellofemoral syndrome Initial plan: * upreg * Knee XRs 3 views * Tylenol 650mg PO * reevaluation 17:45 In light of positive test, XRay evaluation cancelled. ETHEL wrap bandage applied by Amador BLAKE. Had an extensive conversation with patient and advised her to follow up with [facility] INTELLIGENCE OFFICER as soon as possible. Patient denies having any previous pregnancies. Patient continues to deny having any related complaints including vaginal bleeding, abdominal pain, dizziness, headaches, nausea/vomiting, urinary symptoms, visual changes, and fever. Educated patient on care. 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 1820 On re-evaluation, patient reports improvement of symptoms. On exam, patient remains AAOx3, in no acute distress. Lungs clear to auscultation, cardiac RRR. Vitals stable. Repeat HR: 74. RICE encouraged. Lab/Diagnostic results d/w the patient in great detail. Diagnosis of acute knee pain, positive test d/w the patient. Based on history, exam and diagnostic results, plan will be for outpatient follow up with PMD/OBGYN. Patient instructed to follow-up with pmd / referral provided / the clinic in 1- 2 days without fail. Advised to take medication as prescribed. Return to the emergency room at any time for any new or worsening symptoms. Patient states she fully agrees with and understands discharge instructions. States that she agrees with the plan and disposition. Verbalized and repeated discharge instructions and plan. I have given the patient opportunity to ask any additional questions. ------- Scribe Attestation: Documented See Webb, acting as a scribe for Giselle Bianchi Provider Scribe Attestation: All medical record entries made by the Scribe were at my direction and personally dictated by me. I have reviewed the chart and agree that the record accurately reflects my personal performance of the history, physical exam, medical decision making, and the department course for this patient. I have also personally directed, reviewed, and agree with the discharge instructions and disposition. Disposition - Clinical Impression Clinical Impression: Acute knee pain, Positive urine test - Patient ED Disposition Is Patient to be Admitted: No Counseled Patient/Family Regarding: Studies Performed, Diagnosis, Need For Followup, Rx Given - Disposition Referrals: your, OBRANDEE [Other] Juan Pete III, MD [Staff Provider] - Disposition: Routine/Home Disposition Time: 18:20 Condition: STABLE Additional Instructions: FOLLOW UP WITH OBGYN SCHEDULED ON FRIDAY. RETURN TO ED WITH ANY NEW OR W ORSENING SYMPTOMS. The emergency medical care you received today was directed at your acute symptoms. If you were prescribed any medication, please fill it and take as directed. It may take several days for your symptoms to resolve. Return to the Emergency Department if your symptoms worsen, do not improve, or if you have any other problems. Please contact your doctor in 2 days for re-evaluation and follow up / or call one of the physicians/clinics you have been referred to that are listed on the Patient Visit Information form that is included in your discharge packet. Bring any paperwork you were given at discharge with you along with any medications you are taking to your follow up visit. Our treatment cannot replace ongoing medical care by a primary care provider (PCP) outside of the emergency department. Prescriptions: Acetaminophen [Acetaminophen 8 Hour] 650 mg PO Q8 PRN #21 tablet.er PRN Reason: Pain, Moderate (4-7) 21/Iron Fu/Folic Acid [ Complete Caplet] 1 each PO DAILY #60 tablet Instructions: Tests, Symptoms, Patellofemoral Pain (DC), Care, Knee Pain (DC) Forms: [facility] (Yakut) Print Language: MACEDONIAN - POA Present On Arrival: None
[2018-07-06 19:01] VITALS: BP 122/73; PULSE 74; RESP 18; TEMP 98
[2018-07-06 23:50] VITALS: O2SAT 99
== END 2018-07-06 18:58 | disposition home or self-care (01) ==
LOC: H.ER 17:15
DX: M25.561 Pain in right knee (principal); Z32.01 Encounter for pregnancy test, result positive